=== PATIENT | female | born 1985 | race Caucasian/White ===

== ENCOUNTER 2018-11-06 09:02 | Emergency (ER) | payer BC ==
--- OUTSIDE RECORDS SUMMARY | 2018-11-06 09:11 | XMS REPORT | Continuity of Care Document ---
:1985 External Reference #:[id number] Author Name SAGE Zhou Address [address] [place] [address] Problems Description No Information Available Social History Type Date Description Comments Sex Unknown Tobacco Use Start: Unknown Never Smoked Cigarettes ETOH Use Rarely consumes alcohol 2 glasses of wine a month. Allergies, Adverse Reactions, Alerts Description No Known Drug Allergies Medications Active Medications SIG Qnty Indications Ordering Provider Date Ciprofloxacin HCL 1 by mouth 14tabs N39.0 SAGE Zhou 11/03/2018 500mg twice a day x Tablets 7d Immunizations CPT Code Status Date Vaccine Lot # [id number] Given 11/10/2017 Influenza Vac, Quad[place], [place] [id number] Given 11/12/2016 Influenza Vac, [place] [id number] Given 11/27/2015 Influenza Vac, Quadrivalent, Slit Virus, Im [id number] Given 01/08/2000 Td Immunization, For Use In Individuals 7 Years Or Older Vital Signs Date Vital Result Comment 11/03/2018 8:54am BP Systolic 122 mmHg BP Diastolic 76 mmHg Heart Rate 60 /min Body Temperature 98.9 F Respiratory Rate 16 /min Height 64 inches 5'4" Weight 125.00 lb BMI (Body Mass Index) 21.5 kg/m2 11/18/2016 4:59pm BP Systolic 122 mmHg BP Diastolic 82 mmHg Heart Rate 80 /min Body Temperature 98.8 F Height 64 inches 5'4" Weight 119.00 lb BMI (Body Mass Index) 20.4 kg/m2 Results Test Date Facility Test Result H/L Range Note Ua - Micro (Fma) 11/03/2018 [facility] Appearance CLOUDY (607)- - Color YELLOW Glucose, Urine (Fma/CMC/CTX) NEG Bilirubin NEG Ketones NEG SP Grav >=1.030 Blood LARGE PH 6.5 Protein 4+ Urobil 0.2 Nitrite POS Leukocytes (Fma/CMC/Centrex) MOD Hyaline - /Lpf Granular - /Lpf WBC (Fma,Centrex) 40-50 RBC >50 Mucus (Fma/CBC/Centrex) - /Lpf Epith RARE /Lpf Bacteria 4+ /Hpf Amorphous (Fma/CMC/Centrex) - /Lpf Crystals, Fluid (Fma/CMC/CTX) - Z#Comments <pending> [place] test [place] [facility] [place] [place]> Procedures Description No Information Available Medical Devices Description No Information Available Encounters Description No Information Available Assessments Date Code Description Provider 11/03/2018 Z01.419 Encounter for gynecological examination SAGE Zhou (general) (routine) without abnormal findings 11/03/2018 N39.0 Urinary tract infection, site not specified SAGE Zhou Plan of Treatment 11/03/2018 - SAGE ZhouZ01.419 Encounter for gynecological examination ( general) (routine) without abnormal findingsComments:Pap doneAnticipatory guidance given - healthy lifestyle, safety, preventionRepeat in 3 vcrhrL22.0 Urinary tract infection, site not specifiedNew Medication:Ciprofloxacin HCL 500 mg - 1 by mouth twice a day x 7dComments:Inc fluidsCall if sx worsen/persist Functional Status Description No Information Available Mental Status Description No Information Available Referrals Description No Information Available
[2018-11-06 09:13] VITALS: BP 110/67
--- NOTE | 2018-11-06 09:56 | UC ---
Complaint Female HPI - HPI Summary HPI Summary: 33 year old female with no PMH, h/o UTIs in past, infrequent, last 2008, presents with right lower back pain, suprapubic discomfort. Patient had menses 10/27 with typical abdominal cramping, but symptoms continued with dysuria , frequency, was seen by PCP on 11/04/ tuesday for routine pap, UA + for bacteria , placed on Cpiro x 7 days. Patient states urinary symptoms have stop- no dysuria, frequency, but continues to have right lower back pain, suprapubic pain , and abdominal bloating/ mild cramping. + flatus, + increased bowel sounds. no fever, chills, muscle aches, headache, hematuria, vaginal discharge, vaginal pain. Denies possibility of STDs. not on BC. states urine was cloudy but has cleared. no colicy pains. - History Of Current Complaint Chief Complaint: UCGU Stated Complaint: FLANK PAIN , Time Seen by Provider: 11/06/18 09:17 Hx Obtained From: Patient Hx Last Menstrual Period: 10/27/18 ?: No - meses 10/27 Onset/Duration: Gradual Onset, Lasting Weeks, Still Present Timing: Constant Severity Initially: Moderate Severity Currently: Moderate Pain Intensity: 7 Pain Scale Used: 0-10 Numeric Character: Dull, Cramping Aggravating Factor(s): Nothing Alleviating Factor(s): Nothing Associated Signs And Symptoms: Positive: Back Pain. Negative: Fever, Vaginal Bleeding/Discharge, Vaginal Discharge, Nausea, Vomiting(# Of Episodes =), Genital Swelling, Genital Blisters - Allergies/Home Medications Allergies/Adverse Reactions: Allergies Allergy/AdvReac Type Severity Reaction Status Date / Time No Known Allergies Allergy Verified 11/06/18 09:12 Home Medications: Home Medications Ciprofloxacin TAB* [Cipro 500 MG TAB*] 500 mg PO BID 11/06/18 [History Confirmed 11/06/18] PMH/Surg Hx/FS Hx/Imm Hx Previously Healthy: Yes - Surgical History Surgical History: Yes Surgery Procedure, Year, and Place: 2 c-sections - Family History Known Family History: Positive: Non-Contributory - Social History Alcohol Use: Occasionally Substance Use Type: None Smoking Status (MU): Never Smoked Tobacco Review of Systems All Other Systems Reviewed And Are Negative: Yes Constitutional: Negative: Fever, Chills, Fatigue Gastrointestinal: Positive: Abdominal Pain. Negative: Vomiting, Diarrhea, Nausea Genitourinary: Negative: Dysuria, Hematuria, Frequency, Urgency, Vaginal/Penile Burning, Vaginal/Penile Itching, Vaginal/Penile Discharge, Vaginal/Penile Pain, Vaginal/Penile Tenderness, Abnormal Bleeding Musculoskeletal: Positive: Myalgia - back pain, right sided Is Patient Immunocompromised?: No Physical Exam Triage Information Reviewed: Yes Appearance: Well-Appearing, No Pain Distress, Well-Nourished Vital Signs: Initial Vital Signs Temp 97.8 F 11/06/18 09:09 Pulse 69 11/06/18 09:09 Resp 18 11/06/18 09:09 BP 110/67 11/06/18 09:09 Pulse Ox 100 11/06/18 09:09 Vital Signs Reviewed: Yes Eyes: Positive: Conjunctiva Clear Abdomen Description: Positive: No Organomegaly, Soft, Other: - neg psoas, neg obturator. TTP suprapubic moderate, mild RLQ, LLQ tenderness, + mild distended.. Negative: CVA Tenderness (R), CVA Tenderness (L), Distended, Guarding, Hepatomegaly, McBurney's Point Tenderness, Splenomegaly Musculoskeletal: Positive: Other: - No CVA tenderness b/l, right sided pain above hip laterally extending to RLQ, Neurological Exam: Normal Psychological Exam: Normal Skin Exam: Normal Complaint Female Dx - Course Course Of Treatment: UTI - urine cultures returned, good S + for Cipro= antibiotic is appropriate, continue taking as directed - Increase fluid intake- Should be urinating every 2-3 hours to flush out system - Return or go to ER with increased pain, fever, flank pain, body aches/ chills. - Probiotics/ Yogurt/ Kombucha., Gas-X/ Beano for abdominal bloating - Follow up with Dr. Macedo within 1-2 days if no improvement - Tylenol as needed for pain - Differential Dx/Diagnosis Provider Diagnosis: UTI (urinary tract infection) Discharge ED - Sign-Out/Discharge Documenting (check all that apply): Patient Departure All imaging exams completed and their final reports reviewed: No Studies - Discharge Plan Condition: Good Disposition: HOME Patient Education Materials: Urinary Tract Infection in Women (ED) Forms: *Work Release Referrals: Nova Macedo MD [Primary Care Provider] - (follow up in 1-2 days if no improvement ) Additional Instructions: UTI - urine cultures returned, antibiotic is appropriate, continue taking - Increase fluid intake- Should be urinating every 2-3 hours to flush out system - Return or go to ER with increased pain, fever, flank pain, body aches/ chills. - Probiotics/ Yogurt/ Kombucha., Gas-X/ Beano for abdominal bloating - Follow up with Dr. Macedo within 1-2 days if no improvement - Tylenol as needed for pain - Billing Disposition and Condition Condition: GOOD Disposition: Home - Attestation Statements Provider Attestation: Per institutional requirements, I have reviewed the chart, however, I was not consulted specifically or made aware of this patient by the midlevel provider. I did not personally evaluate, interact with , or disposition this patient.
== END 2018-11-06 09:53 | disposition home or self-care (01) ==
LOC: UCEAST 09:02
DX: N39.0 Urinary tract infection, site not specified (principal); Z87.440 Personal history of urinary (tract) infections
CPT/HCPCS: 81003; 84702; 99211; G0463

== ENCOUNTER 2018-11-18 10:17 | Emergency (ER) | payer BC ==
--- OUTSIDE RECORDS SUMMARY | 2018-11-18 10:30 | XMS REPORT | Continuity of Care Document ---
:1985 External Reference #:[id number] Author Name Rosalia Mandujano, ALBERTO Address [address] [place] [address] Problems Description No Information Available Social History Type Date Description Comments Sex Unknown Tobacco Use Start: Unknown Never Smoked Cigarettes ETOH Use Rarely consumes alcohol 2 glasses of wine a month. Allergies, Adverse Reactions, Alerts Description No Known Drug Allergies Medications Active Medications SIG Qnty Indications Ordering Provider Date No Active Medications Unknown 11/14/2018 History Medications Ciprofloxacin HCL 1 by mouth 14tabs N39.0 SAGE Zhou 11/03/2018 - 500mg twice a day x 11/14/2018 Tablets 7d Immunizations CPT Code Status Date Vaccine Lot # [id number] Given 11/10/2017 Influenza Vac, [place], [place] [id number] Given 11/12/2016 Influenza Vac, [place]riv[place], [place] [id number] Given 11/27/2015 Influenza Vac, Quadrivalent, Slit Virus, Im [id number] Given 01/08/2000 Td Immunization, For Use In Individuals 7 Years Or Older Vital Signs Date Vital Result Comment 11/14/2018 9:34am BP Systolic 104 mmHg BP Diastolic 70 mmHg Heart Rate 72 /min Body Temperature 99.3 F Respiratory Rate 12 /min Height 64 inches 5'4" Weight 124.00 lb BMI (Body Mass Index) 21.3 kg/m2 11/03/2018 8:54am BP Systolic 122 mmHg BP Diastolic 76 mmHg Heart Rate 60 /min Body Temperature 98.9 F Respiratory Rate 16 /min Height 64 inches 5'4" Weight 125.00 lb BMI (Body Mass Index) 21.5 kg/m2 Results Test Date Facility Test Result H/L Range Note Laboratory test 11/06/2018 [facility]oc , Negative Negative 1 finding Urine Poc Urinalysis 11/06/2018 [facility] Glucose, Negative Negative Urine Poc Bilirubin, Urine Negative Negative Poc Ketone, Urine Negative Negative Poc Specific [place], Urine 1.020 Normal 1.010-1.030 Poc Blood, Urine 1+ Abnormal Negative Poc pH, Urine 6.0 Normal 5-9 Poc Protein, Urine 2+ Abnormal Negative Poc Urobilinogen, Urine 0.2 Negative Poc Nitrite, Urine Negative Negative Poc Leukocytes, Urine Trace Abnormal Negative Poc Color, Urine Yellow Poc Clarity, Urine Cloudy 2 Urine Culture And 11/03/2018 [facility] Urine Culture SEE RESULT 3 Sensitivities BELOW Ua - Micro (Fma) 11/03/2018 [facility] Appearance CLOUDY (607)- - Color YELLOW Glucose, Urine (Fma/CMC/CTX) NEG Bilirubin NEG Ketones NEG SP Grav >=1.030 Blood LARGE PH 6.5 Protein 4+ Urobil 0.2 Nitrite POS Leukocytes (a/CMC/Centrex) MOD Hyaline - /Lpf Granular - /Lpf WBC (Fma,Centrex) 40-50 RBC >50 Mucus (Fma/CBC/Centrex) - /Lpf Epith RARE /Lpf Bacteria 4+ /Hpf Amorphous (Fma/CMC/Centrex) - /Lpf Crystals, Fluid (Fma/CMC/CTX) - Laboratory test finding 11/03/2018 [facility] Cytology Thinprep SEE RESULT BELOW 4 w/rfx([facility] [place]) 1 Extended Day Teacher: [id number] Test Disclaimer: Positive bacteria, red blood cells, white blood cells, early , low specific gravity, and other factors may cause false positive or negative results. It is recommended to retest unexpected and borderline results with a serum test when applicable. If is still suspected, please repeat test after 48 to 72 hours. 2 Extended Day Teacher: [id number] 3 SEE RESULT BELOW Name: ROSA PINTO Jose Enrique : [address]: Catherine Garcia NP Acct: [id number] Unit: [id number] AGE: 33 Location: [facility] Re11/03/18 SEX: F Status: REG REF SPEC: [id number] RAFAELA: 11/03/18-[address]: Catherine Garcia NP REQ: [id number] RECD: 11/03/18-1810 STATUS: RES _ SOURCE: URINE SPDESC: ORDERED: Urine Culture COMMENTS: [id number] Urine Source: Random Procedure Result Reported Site Urine Culture Final 11/04/18- 1556 ML Organism 1 ESCHERICHIA COLI [place] Count >100,000 (Many) CFU/ML * ML - Main Lab . END OF REPORT DEPARTMENT OF PATHOLOGY, [address] [place] [address] Jay Jay Hardy M.D. Director JUANITA # [id number] 4 SEE RESULT BELOW Name: ROSA PINTO : [address]: Catherine Garcia NP Acct: [id number] Unit: [id number] AGE: 33 Location: [facility] Re11/03/18 SEX: F Status: REG REF SPEC: [id number] RAFAELA: 11/03/18-[address] [facility] [address]: Catherine Garcia NP REQ: [id number] RECD: 11/03/18 STATUS: WINNIE LEE DR: Nova Macedo MD _ ORDERED: TP IMAGE ANALYS COMMENTS: [id number] Negative for Intraepithelial lesion or Malignancy A. Ectocervical/Endocervical Specimen Adequacy: Satisfactory of evaluation Transformation zone component identified Patient Information: HPV: Thin Layer Pap Test w/reflex to high risk HPV RNA testing when ASCUS Actual Specimen Date: 11/03/18 ?: N Post Menopausal?: N Hysterectomy?: N Previous Abnormal Pap Smears?:N Signed by and Reported on: MIKE John (ASCP) [id number] This Pap test was evaluated with the assistance of the Jigsaw24p Test Imaging System. Due to cytologic findings at the insurance marketing specialist microscope, comprehensive manual rescreening by a Staff Writer may be required. The Pap Smear is a screening test designed to aid in the detection of premalignant and malignant conditions of the uterine cervix. It is not a diagnostic procedure and should not be used as the sole means of detecting cervical cancer. Both false- positive and false- negative reports do occur. Depending on your risk status, a Pap smear should be obtained and evaluated every 1-3 years. END OF REPORT DEPARTMENT OF PATHOLOGY, [address] [place] [address] Jay Jay Hardy M.D. 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 (general) (routine) w/o abn findings N39.0 Urinary tract infection, site not specified Assessments Date Code Description Provider 11/14/2018 R14.0 Abdominal distension (gaseous) Rosalia Mandujano NP 11/14/2018 N39.0 Urinary tract infection, site not specified Roaslia Mandujano NP 11/14/2018 R10.11 Right upper quadrant pain Rosalia Mandujano NP 11/03/2018 Z01.419 Encounter for gynecological examination SAGE Zhou (general) (routine) without abnormal findings 11/03/2018 N39.0 Urinary tract infection, site not specified SAGE Zhou Plan of Treatment 11/14/2018 - Rosalia Mandujano, NPR14.0 Abdominal distension (gaseous)New Xrays: Ultrasound Transvaginal Non-OB, Ordered: 11/14/18Comments:Though your symptoms are not severe, it makes sense to get an ultrasound of your pelvic organs to make sure you do not have any new cysts or problems there.N39.0 Urinary tract infection, site not specifiedComments:Your infection is resolved, no further treatment at this time.R10.11 Right upper quadrant painNew Labs:Ua - Micro (Fma) , Ordered: 11/14/18New Xrays:Ultrasound Abdominal Limited, Ordered: AllNew Medication:No Active Medications -Comments:1. Patient has been queried about patient's goals/preferences and functional/lifestyle goals at relevant visits. If relevant, describe: Has been discussed, noted above2. Treatment goals as explainedto the patient: see above3. Are there barriers to meeting treatment goals? Yes If Yes, please describe: Barriers include possible insurance limits, disease process, and difficulty with lifestyle changes4. Self-Management goals as described to the patient: Yes, see above As always, we strongly encourage a healthy diet and making physical activity a part of your every day life. If you have questions about how or where to start, please contact the office. Functional Status Description No Information Available Mental Status Description No Information Available Referrals Description No Information Available
[2018-11-18 12:34] LABS: ABS Basophils 0.1 10^3/ul (0-0.2); ABS Lymphocytes 1.3 10^3/ul (1.0-4.8); ABS Monocytes 0.3 10^3/ul (0-0.8); ABS Neutrophils 3.7 10^3/ul (1.5-7.7); Eosinophil % 0.1 %; Hematocrit 36 % (35-47); Hemoglobin 12.2 g/dL (12.0-16.0); Lymphocyte % 24.5 %; Mean Corpuscular HGB Conc 34 g/dL (31-36); Mean Corpuscular Hemoglobin 31 pg (27-31); Mean Corpuscular Volume 91 fL (80-97); Mean Platelet Volume 7.1 fL (7.4-10.4); Platelet Count 233 10^3/uL (150-450); Red Blood Count 3.93 10^6 /uL (3.70-4.87); Red Cell Distribution Width 13 % (10-15); White Blood Count 5.5 10^3/uL (3.5-10.8)
[2018-11-18 12:55] LABS: ALT 8 U/L (7-52); AST 12 U/L (13-39); Albumin 4.1 g/dL (3.2-5.2); Albumin/Globulin Ratio 1.9 (1-3); Alkaline Phosphatase 43 U/L (34-104); Amylase 51 U/L (29-103); Anion Gap 6 mmol/L (2-11); BUN/Creatinine Ratio 26.2 (8-20); Blood Urea Nitrogen 17 mg/dL (6-24); C Reactive Protein < 1.00 mg/L (<8.01); CO2 Carbon Dioxide 22 mmol/L (22-32); Calcium 8.9 mg/dL (8.6-10.3); Chloride 110 mmol/L (101-111); EGFR African American 126.3 (>60); EGFR Non-African American 104.3 (>60); Globulin 2.2 g/dL (2-4); Glucose 81 mg/dL (70-100); Magnesium 1.7 mg/dL (1.9-2.7); Potassium 4.1 mmol/L (3.5-5.0); Sodium 138 mmol/L (135-145); Total Protein 6.3 g/dL (6.4-8.9)
[2018-11-18 13:01] LABS: HCG Pregnancy < 0.60 mIU/mL
--- NOTE | 2018-11-18 13:44 | ED ---
Abdominal Pain/Female - HPI Summary HPI Summary: This patient is an otherwise healthy 33yo female presenting with low mid and bilateral abdominal pain she describes as cramping which has been present since the end of October. She has also been having some right flank pain which has been intermittent As well as UTI symptoms. She did see her PCP who prescribed her Cipro 500 mg 7 days which completely resolved her UTI symptoms after 24 hours. She states despite the ciprofloxacin, she continues to have right flank pain and bilateral lower quadrant pain and is now complaining of profuse diarrhea over the past 2 days. She does not feel she can get a sample at this time. She is having an increased pain rated a 3/10, burping and bloating after eating. She denies any pain to the RUQ. Denies any shortness of breath or chest pain. She does endorse some nausea, however no vomiting. Denies melena or change in bowel colors. No allergies to food. Symptoms are not worse or better after eating and typically are worse in the middle of the night and awaken her from sleep. She has tried to limit intake on certain foods, however this has not made a difference. She continues to deny any fevers, sweats, chills or other recent illness. Other than her recent ciprofloxacin medication, she has not been on other medications. Non-smoker, rare alcohol - History of Current Complaint Chief Complaint: EDAbdPain Stated Complaint: ABD/BACK PAIN PER PT Time Seen by Provider: 11/18/18 10:48 Hx Obtained From: Patient Hx Last Menstrual Period: 10/27/18 ?: No Onset/Duration: Sudden Onset Timing: Constant Severity Initially: Moderate Severity Currently: Moderate Pain Intensity: 7 Pain Scale Used: 0-10 Numeric Location: Other - diffuse lower abdominal pain Radiates: No Character: Cramping Aggravating Factor(s): Nothing Associated Signs and Symptoms: Positive: Negative - Risk Factors Ectopic Risk Factor: Negative Ovarian Torsion Risk Factor: Negative Allergies/Adverse Reactions: Allergies Allergy/AdvReac Type Severity Reaction Status Date / Time No Known Allergies Allergy Verified 11/18/18 10:24 PMH/Surg Hx/FS Hx/Imm Hx Previously Healthy: Yes - Surgical History Surgery Procedure, Year, and Place: 2 c-sections - Immunization History Hx Pertussis Vaccination: No Immunizations Up to Date: Yes Infectious Disease History: No Infectious Disease History: Denies: Traveled Outside the [place] in Last 30 Days - Family History Known Family History: Positive: Non-Contributory - Social History Occupation: Employed Full-time Lives: With Family Alcohol Use: Occasionally Hx Substance Use: No Substance Use Type: Reports: None Smoking Status (MU): Never Smoked Tobacco Review of Systems Constitutional: Negative Negative: Fever, Chills, Fatigue, Skin Diaphoresis Negative: Epistaxis, Dental Pain Negative: Palpitations, Chest Pain Negative: Shortness Of Breath, Cough Positive: Abdominal Pain, Diarrhea. Negative: Vomiting, Nausea Positive: flank pain - right sided, incontinence, urgency Negative: Arthralgia, Myalgia Skin: Negative Neurological: Negative All Other Systems Reviewed And Are Negative: Yes Physical Exam Triage Information Reviewed: Yes Vital Signs On Initial Exam: Initial Vitals Temp Pulse Resp BP Pulse Ox 99.6 F 107 16 170/99 97 11/18/18 10:21 11/18/18 10:21 11/18/18 10:21 11/18/18 10:21 11/18/18 10:21 Vital Signs Reviewed: Yes Appearance: Positive: Well-Appearing, Well-Nourished Skin: Positive: Skin Color Reflects Adequate Perfusion Head/Face: Positive: Normal Head/Face Inspection Eyes: Positive: EOMI, SHELLEY, Conjunctiva Clear Neck: Positive: Supple, No Lymphadenopathy Respiratory/Lung Sounds: Positive: Clear to Auscultation, Breath Sounds Present Cardiovascular: Positive: RRR, Pulses are Symmetrical in both Upper and Lower Extremities Abdomen Description: Positive: Nontender, Soft. Negative: CVA Tenderness (R), CVA Tenderness (L) Musculoskeletal: Positive: Normal, Strength/ROM Intact Neurological: Positive: Sensory/Motor Intact, Alert, Oriented to Person Place, Time, Speech Normal Psychiatric: Positive: Normal, Affect/Mood Appropriate AVPU Assessment: Alert Diagnostics - Vital Signs Vital Signs Temp Pulse Resp BP Pulse Ox 11/18/18 10:21 99.6 F 107 16 170/99 97 - Laboratory Lab Results: Lab Results 11/18/18 11/18/18 11/18/18 Range/Units 12:26 12:26 12:26 WBC 5.5 (3.5-10.8) 10^3/uL RBC 3.93 (3.70-4.87) 10^6 /uL Hgb 12.2 (12.0-16.0) g/dL Hct 36 (35-47) % MCV 91 (80-97) fL MCH 31 (27-31) pg MCHC 34 (31-36) g/dL RDW 13 (10-15) % Plt Count 233 (150-450) 10^3/uL MPV 7.1 L (7.4-10.4) fL Neut % (Auto) 68.7 % Lymph % (Auto) 24.5 % Hinds % (Auto) 5.7 % Eos % (Auto) 0.1 % Baso % (Auto) 1.0 % Absolute Neuts (auto) 3.7 (1.5-7.7) 10^3/ul Absolute Lymphs (auto) 1.3 (1.0-4.8) 10^3/ul Absolute Monos (auto) 0.3 (0-0.8) 10^3/ul Absolute Eos (auto) 0.0 (0-0.6) 10^3/ul Absolute Basos (auto) 0.1 (0-0.2) 10^3/ul Absolute Nucleated RBC 0.0 10^3/ul Nucleated RBC % 0.0 Sodium 138 (135-145) mmol/L Potassium 4.1 (3.5-5.0) mmol/L Chloride 110 (101-111) mmol/L Carbon Dioxide 22 (22-32) mmol/L Anion Gap 6 (2-11) mmol/L BUN 17 (6-24) mg/dL Creatinine 0.65 (0.51-0.95) mg/dL Est GFR ( Amer) 126.3 (>60) Est GFR (Non-Af Amer) 104.3 (>60) BUN/Creatinine Ratio 26.2 H (8-20) Glucose 81 (70-100) mg/dL Lactic Acid 0.9 (0.5-2.0) mmol/L Calcium 8.9 (8.6-10.3) mg/dL Magnesium 1.7 L (1.9-2.7) mg/dL Total Bilirubin 1.00 (0.2-1.0) mg/dL AST 12 L (13-39) U/L ALT 8 (7-52) U/L Alkaline Phosphatase 43 (34-104) U/L C-Reactive Protein < 1.00 (<8.01) mg/L Total Protein 6.3 L (6.4-8.9) g/dL Albumin 4.1 (3.2-5.2) g/dL Globulin 2.2 (2-4) g/dL Albumin/Globulin Ratio 1.9 (1-3) Amylase 51 (29-103) U/L Lipase 12 (11.0-82.0) U/L Beta HCG, Quant < 0.60 mIU/mL Result Diagrams: 11/18/18 12:26 11/18/18 12:26 Lab Statement: Any lab studies that have been ordered have been reviewed, and results considered in the medical decision making process. Abdominal Pain Fem Course/Dx - Course Course Of Treatment: During this course of treatment, the patient is evaluated for vague complaints of right flank pain, UTI symptoms since resolved with antibiotics as well as bilateral lower quadrant pain, bloating and diarrhea. She does have a follow-up appointment in 2 weeks for gallbladder ultrasound as well as transvaginal ultrasound, however felt she could not wait for that appointment. Symptoms have worsened over the past 2 days with increase in bilateral lower quadrant pain and now diarrhea. Denies any chance of STDs. Denies any vaginal discharge, hx of std's, BV, vaginal pain, etc. No chance of . Labs obtained: Unremarkable. IMPRESSION: 1. THERE IS A 1 MM CALCIFICATION IN THE REGION OF THE LEFT URETEROVESICAL JUNCTION POSSIBLY REPRESENTING A CALCULUS. RECOMMEND CORRELATION WITH CLINICAL SYMPTOMS. 2. SMALL NONOBSTRUCTING RIGHT RENAL CALCULUS. 3. MILD DEPENDENT INCREASED DENSITY WITHIN THE GALLBLADDER POSSIBLY REPRESENTING SLUDGE OR GALLSTONES. Discussed these results with patient. Gallbladder US ordered and is pending. Continues to deny pain to the RUQ. Patient is signed out to Lito Saini pending these results. She will follow up with GI. - Diagnoses Differential Diagnosis: Positive: Gall Bladder Disease, Irritable Bowel Syndrome , Renal Colic, Urinary Tract Infection Provider Diagnoses: Abdominal pain Discharge ED - Sign-Out/Discharge Documenting (check all that apply): Sign-Out Patient Signing out patient TO: Gunnar Estrada Patient Received Moderate/Deep Sedation with Procedure: No - Discharge Plan Condition: Stable Disposition: AGAINST MEDICAL ADVICE Patient Education Materials: Acute Diarrhea (ED) Referrals: Jed Harris MD [Medical Doctor] - As Soon As Possible Nova Macedo MD [Primary Care Provider] - Additional Instructions: If you develop a fever, shortness of breath, chest pain, new or worsening symptoms - please call your PCP or go to the ED immediately. Try a bland diet of bananas, rice, applesauce, and toast and advance your diet as tolerated. There was a small poylp on your gallbladder that does not appear concerning, but should be checked in a couple of months by your primary doctor or GI doctor. Please follow up with Gastroenterology at the number below within 2 weeks for a recheck of your symptoms - Billing Disposition and Condition Condition: STABLE Disposition: Against Medical Advice - Attestation Statements Provider Attestation: I was available for consultation for this patient. I did not evaluate the patient or participate in any medical decision making or disposition decisions unless I am specifically named in the chart as having consulted on the patient. If I have consulted on the patient, please see my own ED note on the patient encounter. Colleen Koehler MD
--- NOTE | 2018-11-18 14:28 | ED ---
Progress - Progress Note Progress Note: This patient is an otherwise healthy 33yo female presenting with low mid and bilateral abdominal pain she describes as cramping which has been present since the end of October. She has also been having some right flank pain which has been intermittent As well as UTI symptoms. She did see her PCP who prescribed her Cipro 500 mg 7 days which completely resolved her UTI symptoms after 24 hours. She states despite the ciprofloxacin, she continues to have right flank pain and bilateral lower quadrant pain and is now complaining of profuse diarrhea over the past 2 days. She does not feel she can get a sample at this time. She is having an increased pain rated a 3/10, burping and bloating after eating. She denies any pain to the RUQ. Denies any shortness of breath or chest pain. She does endorse some nausea, however no vomiting. Denies melena or change in bowel colors. No allergies to food. Symptoms are not worse or better after eating and typically are worse in the middle of the night and awaken her from sleep. She has tried to limit intake on certain foods, however this has not made a difference. She continues to deny any fevers, sweats, chills or other recent illness. Other than her recent ciprofloxacin medication, she has not been on other medications. Non-smoker, rare alcohol Receiving sign out from Chiquis BUTLER pending US gallbladder results and dispo. Course/Dx - Course Course Of Treatment: During this course of treatment, the patient is evaluated for vague complaints of right flank pain, UTI symptoms since resolved with antibiotics as well as bilateral lower quadrant pain, bloating and diarrhea. She does have a follow-up appointment in 2 weeks for gallbladder ultrasound as well as transvaginal ultrasound, however felt she could not wait for that appointment. Symptoms have worsened over the past 2 days with increase in bilateral lower quadrant pain and now diarrhea. Denies any chance of STDs. Denies any vaginal discharge, hx of std's, BV, vaginal pain, etc. No chance of . Labs obtained: Unremarkable. IMPRESSION: 1. THERE IS A 1 MM CALCIFICATION IN THE REGION OF THE LEFT URETEROVESICAL JUNCTION POSSIBLY REPRESENTING A CALCULUS. RECOMMEND CORRELATION WITH CLINICAL SYMPTOMS. 2. SMALL NONOBSTRUCTING RIGHT RENAL CALCULUS. 3. MILD DEPENDENT INCREASED DENSITY WITHIN THE GALLBLADDER POSSIBLY REPRESENTING SLUDGE OR GALLSTONES. Discussed these results with patient. Gallbladder US ordered and is pending. Continues to deny pain to the RUQ. Patient is signed out to Lito Estrada pending these results. She will follow up with GI. US gallbladder: FINDINGS: There is a small 3 mm gallbladder wall polyp. No gallstones or sludge is seen. No gallbladder wall thickening, pericholecystic fluid or positive sonographic Benoit sign was present. No intra or extrahepatic ductal distention is present. The common bile duct measured 0.4 cm in diameter. The liver is normal in size without significant focal abnormality. The pancreas is partially obscured by overlying bowel gas. The visualized portion appears to be within normal limits. The right kidney is normal in size without evidence for hydronephrosis. IMPRESSION: SMALL GALLBLADDER WALL POLYP OTHERWISE UNREMARKABLE STUDY. Discussed results with pt. Recommend f/u with GI for further eval of her diarrhea and for repeat US of her gallbladder polyp to determine stability. - Diagnoses Provider Diagnoses: Abdominal pain Discharge ED - Sign-Out/Discharge Documenting (check all that apply): Receiving Sign-Out Receiving patient FROM: Chiquis Garcia Patient Received Moderate/Deep Sedation with Procedure: No - Discharge Plan Condition: Stable Disposition: HOME Patient Education Materials: Acute Diarrhea (ED) Referrals: Nova Macedo MD [Primary Care Provider] - Jed Harris MD [Medical Doctor] - As Soon As Possible Additional Instructions: If you develop a fever, shortness of breath, chest pain, new or worsening symptoms - please call your PCP or go to the ED immediately. Try a bland diet of bananas, rice, applesauce, and toast and advance your diet as tolerated. There was a small poylp on your gallbladder that does not appear concerning, but should be checked in a couple of months by your primary doctor or GI doctor. Please follow up with Gastroenterology at the number below within 2 weeks for a recheck of your symptoms - Billing Disposition and Condition Condition: STABLE Disposition: Home - Attestation Statements Provider Attestation: I was available for consultation for this patient. I did not evaluate the patient or participate in any medical decision making or disposition decisions unless I am specifically named in the chart as having consulted on the patient. If I have consulted on the patient, please see my own ED note on the patient encounter. Colleen Koehler MD
[2018-11-18 14:48] LABS: Urine Appearance Cloudy; Urine Bilirubin Negative (Negative); Urine Blood Negative (Negative); Urine Color Yellow; Urine Glucose Negative (Negative); Urine Ketones 1+ (Negative); Urine Nitrite Negative (Negative); Urine Protein Negative (Negative); Urine Specific Gravity 1.023 (1.010-1.030); Urine Urobilinogen Negative (Negative)
[2018-11-18 14:50] VITALS: BP 106/63
== END 2018-11-18 15:10 | disposition left against medical advice (07) ==
LOC: ED 10:17
DX: R10.84 Generalized abdominal pain (principal); R19.7 Diarrhea, unspecified
CPT/HCPCS: 36415; 74176; 76705; 80053; 81003; 82150; 83605; 83690; 83735; 84702; 85025; 86140; 99282